=== PATIENT | female | born 1965 | race Caucasian/White ===

== ENCOUNTER 2017-11-09 12:06 | Emergency (ER) | payer OTHER ==
[2017-11-09] MEDS: hydrALAzine 20 MG INJ IV (14:20)
[2017-11-09] MEDS: MECLIZINE 12.5 MG TAB PO (14:20)
[2017-11-09 14:29] LABS: ADD MAN DIFF? NO
[2017-11-09 14:31] LABS: WHITE BLOOD COUNT 11.2 10^3/ul (4.8-10.8)
[2017-11-09 14:31] LABS: BASOPHIL # 0.1 10^3/ul (0.0-0.1); BASOPHILS % 1.3 % (0.0-2.0); EOSINOPHILS # 0.3 10^3/ul (0.0-0.5); EOSINOPHILS % 2.8 % (0.0-7.0); HEMATOCRIT 51.2 % (37.0-47.0); HEMOGLOBIN 16.4 g/dl (12.0-16.0); LYMPHOCYTES # 2.6 10^3/ul (0.8-2.9); LYMPHOCYTES % 23.2 % (15.0-51.0); MEAN CORPUSCULAR HEMOGLOBIN 28.7 pg (29.0-33.0); MEAN CORPUSCULAR VOLUME 89.5 fl (82.0-101.0); MEAN PLATELET VOLUME 9.3 fl (7.4-10.4); MONOCYTES % 8.5 % (0.0-11.0); NEUTROPHIL # 7.2 10^3/ul (1.6-7.5); NEUTROPHILS % 63.8 % (39.0-77.0); PLATELET COUNT 510 10^3/UL (140-415); RED BLOOD COUNT 5.72 10^6/ul (4.20-5.40)
[2017-11-09 14:50] LABS: ALANINE AMINOTRANSFERASE 35 IU/L (13-69); ALBUMIN 4.7 g/dl (3.3-4.9); ALBUMIN/GLOBULIN RATIO 1.27; ALKALINE PHOSPHATASE 108 IU/L (42-121); ANION GAP 18 (8-16); ASPARTATE AMINO TRANSFERASE 27 IU/L (15-46); BILIRUBIN,INDIRECT 0.2 mg/dl (0-1.1); BILIRUBIN,TOTAL 0.2 mg/dl (0.2-1.3); BLOOD UREA NITROGEN 41 mg/dl (7-20); CALCIUM 9.4 mg/dl (8.4-10.2); CARBON DIOXIDE 23 mmol/L (21-31); CHLORIDE 106 mmol/L (97-110); CREATININE 1.59 mg/dl (0.44-1.00); GLUCOSE 80 mg/dl (70-220); SODIUM 142 mmol/L (135-144); TOTAL PROTEIN 8.4 g/dl (6.1-8.1)
[2017-11-09 14:54] LABS: POTASSIUM 5.2 mmol/L (3.5-5.1)
[2017-11-09 15:02] LABS: TROPONIN-I < 0.012 ng/ml (0.000-0.120)
== END 2017-11-09 16:00 | disposition home or self-care (01) ==
LOC: E/R 12:06
DX: I10 Essential (primary) hypertension (principal); E86.0 Dehydration; Z79.82 Long term (current) use of aspirin
CPT/HCPCS: 36415; 70450; 71045; 80053; 84484; 85025; 93005; 96374; 99285-25